=== PATIENT | female | born 1935 ===

== ENCOUNTER → 2020-09-24 | Outpatient (CLI) | payer MEDICARE ==
[~2020-09-24] MED LIST: HYDROCODONE PO; RESTORIL PO
--- NOTE | 2020-09-24 14:41 | Diagnostic Imaging Report ---
MRI of the left hip without contrast. History: Femoral fracture. Hip pain. Decreased range of motion. Pain worse with walking. Prior surgery to the right hip Technique: Multiplanar multisequence MRI of the left hip without contrast. Comparison: None Findings: Nondisplaced subchondral fracture involving the left superior and posterior acetabulum with marked bone marrow edema and adjacent soft tissue edema. Additionally, there is marked bone marrow edema in the left femoral head and neck with a linear low signal intensity line along the anterior superior femoral head best seen on sagittal image 20 and 21 consistent with a subchondral microtrabecular fracture. No definite cortical fracture is seen. There is a left hip joint effusion and synovitis which is thought to be reactive. No evidence to suggest greater trochanteric bursitis. Surgical hardware artifact in the right hip/proximal femur. Scattered degenerative change about the remaining visualized osseous structures. Diffuse muscle atrophy. The visualized neurovascular bundles are intact. Postsurgical metallic micrometallic artifact along the anterior lower abdominal wall. The urinary bladder and remainder of the visualized pelvic structures otherwise grossly unremarkable. Scattered diverticulosis without evidence of diverticulitis. Impression: Nondisplaced subchondral fracture involving the left superior and posterior acetabulum with marked bone marrow edema and adjacent soft tissue edema. Additionally, there is marked bone marrow edema in the left femoral head and neck with a linear low signal intensity line along the anterior superior femoral head best seen on sagittal image 20 and 21 consistent with a subchondral microtrabecular fracture. No definite cortical fracture is seen. There is a left hip joint effusion and synovitis which is thought to be reactive. An inflammatory nephropathy is thought to be less likely. Signed by: Dr. Kilo Cazares M.D. on 09/24/2020 2:38 PM
== END ==
LOC: MRI 12:45
PROVIDERS: ATTEND Specialist
DX: S72.92XA Unspecified fracture of left femur, initial encounter for closed fracture (principal)